=== PATIENT | male | born 1980 | race Caucasian/White ===

== ENCOUNTER 2022-02-13 00:57 | Observation (INO) | payer OTHER, BC, SELFPAY ==
[2022-02-13] VITALS (16 sets, daily range): BP systolic 137–163; BP diastolic 75–98; PULSE 60–103; RESP 11–24; TEMP 36.2–37.1; O2SAT 92–99; BMI 30.7
--- NOTE | ~2022-02-13 | CT_ITS ---
EXAMINATION: CT abdomen pelvis w con DATE: 02/13/2022 03:28 INDICATION: Right lower quadrant abdominal pain. Vomiting. TECHNIQUE: Computed tomography (CT) of the abdomen and pelvis was performed with 100 mL Omnipaque 350 intravenous contrast. Automated exposure control and iterative reconstruction technique were employe d. The dose-length product was 708.75 mGy-cm. COMPARISON: None. FINDINGS: The visualized portions of the lung bases demonstrate mild atelectasis. Calcified right marcus g nodules and calcified right hilar lymph nodes are consistent with old granulomatous disease. No ple ural effusion. The heart size is normal. No pericardial effusion. The liver, gallbladder, spleen, mackay creas, and adrenal glands are normal. There are cysts in the kidneys measuring up to 3.0 cm on the le ft. There is an appendicolith in the appendix, which is fluid-filled and dilated to 15 mm with wall t hickening and surrounding fat stranding, consistent with appendicitis. There are no pathologically en larged lymph nodes. There is no free intraperitoneal fluid. There is mild thoracolumbar spondylosis. IMPRESSION: 1. Acute appendicitis. Reviewed, dictated and finalized at location A. IMPRESSION: 1. Acute appendicitis.
[2022-02-13 02:13] LABS: Basophils Absolute Auto 0.1 K/mm3 (0.0-0.1); Basophils Percent Auto 0.3 % (0.2-1.2); Eosinophils Absolute Auto 0.1 K/mm3 (0-0.3); Eosinophils Percent Auto 0.6 % (0-4.4); Hematocrit 53.3 % (42.0-52.0); Hemoglobin 18.4 g/dL (14.0-18.0); Immature Granulocyte Absolute 0.13 K/mm3 (0.00-0.031); Immature Granulocyte Percent A 0.6 % (0-0.5); Lymphocytes Absolute Auto 2.19 K/mm3 (0.9-3.2); Lymphocytes Percent Auto 10.8 % (18.3-44.2); Mean Corpuscular HGB Conc 34.5 g/dl (32-36); Mean Corpuscular Hemoglobin 31.5 pg (26-34); Mean Corpuscular Volume 91.1 fl (80-100); Mean Platelet Volume 10.7 fl (7.4-10.4); Monocytes Absolute Auto 1.3 K/mm3 (0.1-0.6); Monocytes Percent Auto 6.3 % (2.6-8.5); Neutrophils Absolute Auto 16.4 K/mm3 (1.3-6.7); Neutrophils Percent Auto 81.4 % (45.5-73.1); Platelet Count Result 232 k/mm3 (150-375); Red Blood Count 5.85 M/mm3 (4.6-6.20); Red Cell Distribution Width 13.5 % (11.5-14.5); White Blood Count 20.2 K/mm3 (4.5-10.0)
[2022-02-13 02:28] LABS: Alanine Aminotransferase 53 U/L (6-50); Albumin Level 5.2 g/dL (3.5-5.1); Alkaline Phosphatase 52 U/L (38-126); Anion Gap 16 mmol/L (8-16); Aspartate Amino Transferase 44 U/L (17-59); Bilirubin,Total 0.9 mg/dL (0.2-1.3); Blood Urea Nitrogen 27 mg/dL (9-20); Calcium 9.6 mg/dL (8.4-10.2); Carbon Dioxide 28 mmol/L (22-30); Chloride 97 mmol/L (98-107); Estimated CRCL calculation 73 ml/min; Estimated Glomerular Filt Rate > 60; Glucose 101 mg/dL (65-110); Lipase 66 U/L (23-300); Potassium 3.9 mmol/L (3.4-5.0); Sodium 141 mmol/L (137-145)
--- NOTE | 2022-02-13 02:59 | ED.ABDPAIN ---
HPI - Abdominal Pain General Chief Complaint: Abdominal Pain Stated Complaint: N/V ABD pain after drinking out of moldy bottle Time Seen by Provider: 02/13/22 02:39 History of Present Illness HPI narrative: Patient is a 42-year-old male presenting with abdominal pain and vomiting. Patient states that he awoke from sleep around 1130 with right-sided abdominal pain. Patient then had several episodes of emesis after drinking Pepto. Patient's pain continued so he came in for evaluation. He reports chills. No headache, chest pain, shortness of breath, cough, diarrhea, dysuria, leg swelling. Related Data Allergies Allergy/AdvReac Type Severity Reaction Status Date / Time No Known Allergies Allergy Verified 02/13/22 01:00 Review of Systems Review of Systems: All systems reviewed & are unremarkable except as noted in HPI and below PMFSH Social History Social History Smoking status: Never smoker Alcohol intake: current Drinks per week: 2 Substance use: never Spiritual care concerns: No Exam Narrative: GENERAL: appears uncomfortable, nontoxic HEAD: Normocephalic, atraumatic. EYES: PERRLA and EOMI. ENT: Nares clear, no rhinorrhea or epistaxis. Mucous membranes moist. NECK: Supple. CHEST: Clear to auscultation. No respiratory distress. HEART: Regular rate and rhythm. No murmur heard. Normal peripheral pulses. ABDOMEN: Soft, tenderness in RLQ, no guarding or rebound EXTREMITIES: Normal range of motion. No edema. SKIN: Warm, dry, no rash. NEURO: No focal deficits. Alert and oriented x3. PSYCH: Normal mood and affect. Course Course Emergency Course: Patient is a 42-year-old male presenting with right lower quadrant pain and vomiting. Patient slightly tachycardic on arrival, otherwise vitals are within normal limits. Exam is remarkable for the above. Blood work with leukocytosis with white count of 20. CT scan concerning for acute appendicitis. Patient was given Flagyl and Rocephin. Spoke with Dr. Lopez with surgery who will take him to the OR this morning. Vital Signs Vital signs: Vital Signs Temperature 98.4 F 02/13/22 01:49 Pulse Rate 103 H 02/13/22 01:49 Respiratory Rate 24 H 02/13/22 01:49 Blood Pressure 137/82 02/13/22 01:49 Pulse Oximetry 98 02/13/22 01:49 Oxygen Delivery Room Air 02/13/22 01:49 Temperature 98.3 F 02/13/22 15:45 Pulse Rate 69 02/13/22 15:45 Respiratory Rate 14 02/13/22 15:45 Blood Pressure 140/90 02/13/22 15:45 Pulse Oximetry 92 02/13/22 15:45 Oxygen Delivery Room Air 02/13/22 15:07 Oxygen Flow Rate 2 02/13/22 12:50 MDM - Abdominal Pain Lab Data Result diagrams: 02/13/22 02:03 02/13/22 02:03 Labs: Lab Results 02/13/22 02/13/22 02/13/22 Range/Units 02:03 02:03 02:55 WBC 20.2 H (4.5-10.0) K/mm3 RBC 5.85 (4.6-6.20) M/mm3 Hgb 18.4 H (14.0-18.0) g/dL Hct 53.3 H (42.0-52.0) % MCV 91.1 (80-100) fl MCH 31.5 (26-34) pg MCHC 34.5 (32-36) g/dl RDW 13.5 (11.5-14.5) % Plt Count 232 (150-375) k/mm3 MPV 10.7 H (7.4-10.4) fl Immature Gran % (Auto) 0.6 H (0-0.5) % Neut % (Auto) 81.4 H (45.5-73.1) % Lymph % (Auto) 10.8 L (18.3-44.2) % [place] % (Auto) 6.3 (2.6-8.5) % Eos % (Auto) 0.6 (0-4.4) % Baso % (Auto) 0.3 (0.2-1.2) % Lymph # (Auto) 2.19 (0.9-3.2) K/mm3 [place] # (Auto) 1.3 H (0.1-0.6) K/mm3 Eos # (Auto) 0.1 (0-0.3) K/mm3 Baso # (Auto) 0.1 (0.0-0.1) K/mm3 Abs Immat Gran (auto) 0.13 H (0.00-0.031) K/mm3 Absolute Neuts (auto) 16.4 H (1.3-6.7) K/mm3 Absolute Nucleated RBC 0.0 (0.0-0.012) K/mm3 Nucleated RBC % 0.0 (0.0-0.2) % Sodium 141 (137-145) mmol/L Potassium 3.9 (3.4-5.0) mmol/L Chloride 97 L (98-107) mmol/L Carbon Dioxide 28 (22-30) mmol/L Anion Gap 16 (8-16) mmol/L BUN 27 H (9-20) mg/dL Creati
[2022-02-13 03:18] LABS: Add Urine Microscopic? NO; Appearance Urine Clear (Clear); Bilirubin Urine Negative (Negative); Blood Urine Negative (Negative); Color Urine Yellow (Yellow); Glucose Urine UA Negative (Negative); Ketones Urine Negative (Negative); Leukocyte Esterase Ur Negative LEU/UL (Negative); Nitrate Urine Negative (Negative); Protein Urine Negative (Negative); Specific Grav Ur 1.013 (1.001-1.035); Urobilinogen Urine Negative mg/dL (<2.0)
[2022-02-13] MEDS: SODIUM CHLORIDE 0.9% IV 1,000 ML 999 ML IV CONT (03:28)
--- NOTE | 2022-02-13 05:10 | PC.NURSE ---
This patient, Dilan Tompkins, was admitted to [facility] Surg Room 309-01. Patient/family oriented to hospital policies and general routines including ID bracelet, bed and alarms, visiting hours, pain management, procedures, bathroom and other care routines, personal items, smoking policy, room service/diet, and visiting hours. Information on how to activate the Rapid Response Team has been discussed. Patient/Family are encouraged to report perceived risks to care and to ask questions if they do not understand what they are told or what they should do.
[2022-02-13] MEDS: SODIUM CHLORIDE 0.9% IV 1,000 ML 125 ML IV CONT (05:22)
[2022-02-13] MEDS: metroNIDAZOLE 500 MG/ISO 100ML 500 MG/100 ML BAG 100 MG IVPB ×2 (05:22→10:39)
--- NOTE | 2022-02-13 07:36 | PC.NURSE ---
This nurse assumed care of this patient on 02/12/22 at 1900. Any medications administered or charting after 1900 on 02/12/22 was KLL not the previous nurse.
--- NOTE | 2022-02-13 08:39 | PM.IMHP ---
H&P: HPI History of Present Illness Date/Time: 02/13/22 08:39 Chief Complaint: abdominal pain Narrative: Patient is a 42-year-old white male presenting with abdominal pain and vomiting.? Patient states that he awoke from sleep around 11:30 PM last night with right-sided abdominal pain.? Patient then had several episodes of emesis after drinking Pepto.? Patient's pain continued so he came in for evaluation.? states that his 's brother is a physician and they called him and he suggested evaluation in the ED which was fortunate. He reports chills.? No headache, chest pain, shortness of breath, cough, diarrhea, dysuria, leg swelling. Workup in the [place] [id number] scan showed a dilated appendix to 15 mm with surrounding edema and an appendicolith. Review of Systems Review of Systems: All systems reviewed & are unremarkable except as noted in HPI and below (HPI) Constitutional: Constitutional: Reports as per HPI, Denies chills and Denies fever(s) Eyes: Eyes: Reports no additional eye complaints ENT: Reports Normal hearing present and Denies dizziness Cardiovascular: Cardiovascular: Reports no additional cardiovascular complaints, Denies chest pain and Denies irregular heart rhythm Respiratory: Respiratory: Reports no additional respiratory complaints Gastrointestinal: Gastrointestinal: Reports no additional gastrointestinal complaints, Denies abdominal pain and Denies bloating Genitourinary: Genitourinary: Denies hematuria Musculoskeletal: Musculoskeletal: Denies back pain Integumentary/Breasts: Skin/Breast: Reports system reviewed and no additional complaints, except as docu Neurologic: Reports Normal hearing present, Denies Abnormal speech present, Denies confusion and Denies dizziness Psychiatric: Psychiatric: Reports no additional psychiatric complaints and Denies confusion Endocrine: Endocrine: Reports no additional endocrine complaints Hematologic/Lymphatic: Hematologic/Lymphatic: Denies easy bleeding and Denies easy bruising Allergic/Immunologic: Allergic/Immunologic: Reports no additional allergic/immunologic complaints [facility] Social History Social History Smoking status: Never smoker Alcohol intake: current Drinks per week: 2 Substance use: never Spiritual care concerns: No Meds Home Medications and Allergies Home Medications Medication Instructions Recorded Confirmed Type No Home Medications 02/13/22 02/13/22 History Allergies Allergy/AdvReac Type Severity Reaction Status Date / Time No Known Allergies Allergy Verified 02/13/22 01:00 Vital Signs Vital Signs - 24 hr 02/13/22 01:49 02/13/22 02:30 02/13/22 02:31 Temperature 36.9 C Pulse Rate 103 H Respiratory Rate 24 H Blood Pressure 137/82 153/97 H Pulse Oximetry 98 95 94 Oxygen Delivery Room Air 02/13/22 02:45 02/13/22 02:46 02/13/22 04:50 Temperature 37.1 C Pulse Rate 94 Respiratory Rate 17 Blood Pressure 155/93 H 147/98 H Pulse Oximetry 92 92 98 Oxygen Delivery 02/13/22 06:00 Temperature 36.4 C L Pulse Rate 91 Respiratory Rate 20 Blood Pressure 141/75 H Pulse Oximetry 94 Oxygen Delivery Exam Const: General: cooperative, healthy appearing, comfortable, no acute distress, well developed, alert and awake; No confusion Orientation/consciousness: patient oriented x3 and No confusion HENMT: Head: normal to inspection Ears: hearing grossly normal bilaterally Mouth: Yes moist mucous membranes Teeth and gingiva: dentition normal Eyes: General: appearance normal, both eyes and all related structures Conjunctivae: conjunctivae normal Neck: Neck: normal visual inspection, trachea midline and supple Lymphatic: no lymphadenopathy noted Chest: Chest palpation & inspection: normal inspection of the chest Resp: Effort & Inspection: normal respiratory effort Auscultat
[2022-02-13] MEDS: CHLORHEXIDINE GLUCONATE 4% SOL 120 ML BTL 1 APPLIC TOPICAL (09:12)
--- NOTE | 2022-02-13 10:08 | WPDANESEPPF ---
Anes - Initial Pre Proc Eval Date/Time: 02/13/22 10:08 Surgeon: Donta Lopez MD Pre Op Diagnosis: acute appenditicis Patient Data Age: 42 Gender: M Height: 1.8 m Weight: 99.9 kg Last Vital Signs Temp 36.4 C L 02/13/22 06:00 Pulse 91 02/13/22 06:00 Resp 20 02/13/22 06:00 BP 141/75 H 02/13/22 06:00 Pulse Ox 96 02/13/22 09:38 O2 Del Method Room Air 02/13/22 09:38 Allergies Allergy/AdvReac Type Severity Reaction Status Date / Time No Known Allergies Allergy Verified 02/13/22 01:00 Home Medications Medication Instructions Recorded Confirmed Type No Home Medications 02/13/22 02/13/22 History Laboratory Tests 02/13/22 02/13/22 02/13/22 02:03 02:03 02:55 WBC 20.2 K/mm3 H K/mm3 (4.5-10.0) RBC 5.85 M/mm3 M/mm3 (4.6-6.20) Hgb 18.4 g/dL H g/dL (14.0-18.0) Hct 53.3 % H % (42.0-52.0) MCV 91.1 fl fl (80-100) MCH 31.5 pg pg (26-34) MCHC 34.5 g/dl g/dl (32-36) RDW 13.5 % % (11.5-14.5) Plt Count 232 k/mm3 k/mm3 (150-375) MPV 10.7 fl H fl (7.4-10.4) Immature Gran % (Auto) 0.6 % H % (0-0.5) Neut % (Auto) 81.4 % H % (45.5-73.1) Lymph % (Auto) 10.8 % L % (18.3-44.2) [place] % (Auto) 6.3 % % (2.6-8.5) Eos % (Auto) 0.6 % % (0-4.4) Baso % (Auto) 0.3 % % (0.2-1.2) Lymph # (Auto) 2.19 K/mm3 K/mm3 (0.9-3.2) [place] # (Auto) 1.3 K/mm3 H K/mm3 (0.1-0.6) Eos # (Auto) 0.1 K/mm3 K/mm3 (0-0.3) Baso # (Auto) 0.1 K/mm3 K/mm3 (0.0-0.1) Abs Immat Gran (auto) 0.13 K/mm3 H K/mm3 (0.00-0.031) Absolute Neuts (auto) 16.4 K/mm3 H K/mm3 (1.3-6.7) Absolute Nucleated RBC 0.0 K/mm3 K/mm3 (0.0-0.012) Nucleated RBC % 0.0 % % (0.0-0.2) Sodium 141 mmol/L mmol/L (137-145) Potassium 3.9 mmol/L mmol/L (3.4-5.0) Chloride 97 mmol/L L mmol/L (98-107) Carbon Dioxide 28 mmol/L mmol/L (22-30) Anion Gap 16 mmol/L mmol/L (8-16) BUN 27 mg/dL H mg/dL (9-20) Creatinine 1.30 mg/dL mg/dL (0.7-1.3) Estim Creat Clear Calc 73 ml/min ml/min Estimated GFR > 60 (59 - ) Glucose 101 mg/dL mg/dL (65-110) Calcium 9.6 mg/dL mg/dL (8.4-10.2) Total Bilirubin 0.9 mg/dL mg/dL (0.2-1.3) AST 44 U/L U/L (17-59) ALT 53 U/L H U/L (6-50) Alkaline Phosphatase 52 U/L U/L (38-126) Total Protein 9.0 g/dL H g/dL (6.3-8.2) Albumin 5.2 g/dL H g/dL (3.5-5.1) Lipase 66 U/L U/L (23-300) Urine Color Yellow (Yellow) Urine Appearance Clear (Clear) Urine pH 6.0 (5.0-9.0) Ur Specific [place] 1.013 (1.001-1.035) Urine Protein Negative mg/dL mg/dL (Negative) Urine Glucose (UA) Negative mg/dL mg/dL (Negative) Urine Ketones Negative mg/dL mg/dL (Negative) Ur Blood (Man) Negative (Negative) Urine Nitrate Negative (Negative) Urine Bilirubin Negative (Negative) Urine Urobilinogen Negative mg/dL mg/dL (<2.0) Leukocyte Esterase Rfl Negative DAO/UL DAO/UL (Negative) Patient hx anesthesia problems: none Family hx anesthesia problems: none Results Review: All pre-operative results and documents have been reviewed as part of the pre-operative evaluation. [facility] Social History Social History Smoking status: Never smoker Alcohol intake: current Drinks per week: 2 Substance use: never Spiritual care concerns: No Anes - Eval Final PreProcedure Day of Procedure 02/13/22 10:08 Patient weight: overweight Heart: regular rate and rhythm Lungs: clear to auscultation Airway: Ma
[2022-02-13] MEDS: BUPIVACAINE/EPINEPHRINE 0.25% 50 ML VIAL 30 ML INFILTRATE (11:54)
--- NOTE | 2022-02-13 12:00 | W.PM.PROC2 ---
Procedure Note - Detailed Date of Procedure 02/13/22 Pre-op Diagnosis acute uncomplicated appenditicis Post-op Diagnosis Same Procedure Performed laparoscopic appendectomy Surgeon Donta Lopez MD [employer] [facility] Anesthesia General Indications Patient had acute onset of lower abdominal pain that subsequently moved more to the right. CT scan during workup of in the emergency room showed a dilated appendix to 15 mm with an appendicolith. Findings Significantly dilated inflamed appendix without perforation lying in the right lateral colic gutter. Description of Procedure The patient was seen again in the Holding Room. The risks, benefits, complications, treatment options, and expected outcomes were discussed with the patient and/or family. The possibilities of reaction to medication, pulmonary aspiration, perforation of viscus, bleeding, recurrent infection, finding a normal appendix, the need for additional procedures, failure to diagnose a condition, and creating a complication requiring transfusion or operation were discussed. There was concurrence with the proposed plan and informed consent was obtained. The site of surgery was properly noted/marked. The patient was taken to Operating Room, and a time out was preformed which identified this as the proper patient, and the procedure verified as laparoscopic appendectomy, possible open. The patient was placed in the supine position and general anesthesia was induced, along with placement of an orogastric tube, SCD hose, and a Fan catheter. The abdomen was prepped and draped in a sterile fashion. A 5 mm umbilical incision was made and the peritoneal cavity was accessed using the Veress needle technique. Once the abdomen was insufflated to 14 mmHg pressure a 5 mm XL trocar over the 0? 5 mm scope was carefully twisted into the abdomen via the umbilicus. The pneumoperitoneum was then established to steady pressure of 14 mm Hg. A 12 mm laparoscopic port was placed through a transverse suprapubic incision. An additional 5 mm cannula was then placed in in the left upper quadrant at the level intermediate between the left costal margin and the umbilicus under direct vision. A careful evaluation of the entire abdomen was carried out. The patient was placed in Trendelenburg and left lateral decubitus position. The small intestines were retracted in the cephalad and left lateral direction away from the pelvis and right lower quadrant. The patient was found to have an enlarged and inflamed appendix that was extending [into the right side of the pelvis. There was no evidence of perforation. The appendix was carefully dissected. It was positioned curled back on itself in lying in the right colic gutter. Therefore, I was able to place a blue load on the Endo-ADILIA and place it across the base the appendix and on some of the mesoappendix with the 1st firing of the stapler. After the staplerr was appropriately positioned and I checked both sides to be sure we were not on the cecum itself, it was fired and hemostasis was checked along the staple line and appeared to be adequate. I did touch the staple line in 2 places with Bovie cautery on the [place] dissector. Then another cartridge containing a vascular load was applied and the stapler then placed cross the remaining mesoappendix and fired. Upon removal of this staple application there was no significant bleeding along the staple line. This freed up the appendix completely from its attachments to the mesoappendix and colon and it was placed in an endobag. Minimal appendiceal stump was left in place. There was no evidence of bleeding, leakage, or complication after division of the appendix at its junction with the cecum.. The appendix was then placed in an endobag which had been brought through the 12 mm suprapubic port site. The appendix and the bag were then extracted through this larger port site in the suprapubic position. After placing the ca
[2022-02-13] MEDS: LACTATED RINGERS 1,000 ML 30 ML IV CONT (12:05)
[2022-02-13] MEDS: fentaNYL CITRATE INJ (*CRX) 100 MCG/2 ML VIAL 25 MCG IV PUSH ×4 (12:26→12:43)
[2022-02-13] MEDS: LACTATED RINGERS 1,000 ML 100 ML IV CONT (13:51)
[2022-02-13] MEDS: ACETAMINOPHEN 500 MG TABLET 1000 MG PO (14:45)
--- NOTE | 2022-02-13 17:12 | PM.DS ---
DS: Admitting Diagnosis Discharge Date 04/15/2022 Admitting Diagnosis acute uncomplicated appendicitis DS: Discharge Diagnosis Discharge Diagnosis (1) Acute appendicitis, uncomplicated: Code(s): K35.80 - Unspecified acute appendicitis Status: Acute Assessment and Plan: The patient had an uneventful hospital course. He had operative intervention with a laparoscopic appendectomy. There was no sign of perforation. He had no postop nausea or problems and was tolerating pain with only oral Tylenol. He will be discharged on gradually increasing diet with limited activity for 2 weeks and follow up in the office in 10-14 days DS: Summary Hospital Course Reason for hospitalization: appendicitis Hospital Course: The patient had an uneventful hospital course. He had operative intervention with a laparoscopic appendectomy. There was no sign of perforation. He had no postop nausea or problems and was tolerating pain with only oral Tylenol. He will be discharged on gradually increasing diet with limited activity for 2 weeks and follow up in the office in 10-14 days Status at Discharge Cognitive/behavioral status at discharge: normal Functional status at discharge: independent ambulation Overall status at discharge: patient is not back to baseline ( will need some recovery time from his incisions.) Time Spent with Patient Time attestation: Total time spent providing and/or coordinating discharge services: Time spent: Less than 30 minutes Specific discharge activities: instructions on postop care wound care and diet. Exam Const: General: cooperative, comfortable, alert and awake Orientation/consciousness: patient oriented x3 HENMT: Head: normal to inspection Mouth: Yes moist mucous membranes Eyes: Sclera: sclerae normal Pupils: Equal, round and reactive pupils present Neck: Neck: normal visual inspection and no JVD Chest: Chest palpation & inspection: normal inspection of the chest Resp: Effort & Inspection: normal respiratory effort Auscultation: clear to auscultation bilaterally Cardio: Jugular venous distension: no JVD Rate: regular rate GI: Inspection: incision ( clean and dry with surgical glue in place) Auscultation: normal bowel sounds Neuro: General: patient oriented x3 Cranial nerves: Yes Equal, round and reactive pupils present DS: Data Data Completed and Pending Pending studies at discharge: Pending at discharge 02/13/22 11:34 Surgical [PTH] Routine Labs on day of discharge: Labs from last 24 hours 02/13/22 02/13/22 02/13/22 02:55 02:03 02:03 WBC 20.2 H RBC 5.85 Hgb 18.4 H Hct 53.3 H MCV 91.1 MCH 31.5 MCHC 34.5 RDW 13.5 Plt Count 232 MPV 10.7 H Immature Gran % (Auto) 0.6 H Neut % (Auto) 81.4 H Lymph % (Auto) 10.8 L [place] % (Auto) 6.3 Eos % (Auto) 0.6 Baso % (Auto) 0.3 Lymph # (Auto) 2.19 [place] # (Auto) 1.3 H Eos # (Auto) 0.1 Baso # (Auto) 0.1 Abs Immat Gran (auto) 0.13 H Absolute Neuts (auto) 16.4 H Absolute Nucleated RBC 0.0 Nucleated RBC % 0.0 Sodium 141 Potassium 3.9 Chloride 97 L Carbon Dioxide 28 Anion Gap 16 BUN 27 H Creatinine 1.30 Estim Creat Clear Calc 73 Estimated GFR > 60 Glucose 101 Calcium 9.6 Total Bilirubin 0.9 AST 44 ALT 53 H Alkaline Phosphatase 52 Total Protein 9.0 H Albumin 5.2 H Lipase 66 Urine Color Yellow Urine Appearance Clear Urine pH 6.0 Ur Specific [place] 1.013 Urine Protein Negative Urine Glucose (UA) Negative Urine Ketones Negative Ur Blood (Man) Negative Urine Nitrate Negative Urine Bilirubin Negative Urine Urobilinogen Negative Leukocyte Esterase Rfl Negative Discharge Plan Discharge Attending physician on discharge: Donta Lopez Discharging Clinician: Donta Lopez Anticipated Discharge Date/Time: 02/13/22 17:09
== END 2022-02-13 18:00 | disposition home or self-care (01) ==
LOC: ANHED 04:55 → ANH3MEDSUR 04:57
PROVIDERS: Admitting Provider Surgery; Emergency Provider Emergency Medicine; PCP Family Medicine; Visit Provider Surgery
PROC: 0DTJ4ZZ Resection of Appendix, Percutaneous Endoscopic Approach (ICD-10-PCS; CPT 44970; principal; 2022-02-13 10:30)
DX: K35.80 Unspecified acute appendicitis (principal)
CPT/HCPCS: 44970; 36415; 74177; 80053; 81003; 83690; 85025; 88304; 96361; 96365; 96375; 99285; A9270; G0378; J0131; J0330; J0696; J1100; J1170; J2001; J2250; J2405; J2704; J2710; J3010; J7030; J7120; Q9967